=== PATIENT | male | born 1955 | race Two or more races ===

== ENCOUNTER 2023-05-05 07:09 | Outpatient (CLI) | payer OTHER | END 2023-05-05 07:19 | disposition home or self-care (01) | LOC: TOM 07:09 | PROVIDERS: ATTEND General Practice | DX: Z86.010 Personal history of colon polyps (principal) ==

== ENCOUNTER 2023-05-29 07:04 | Outpatient (CLI) | payer OTHER | END 2023-05-29 07:11 | disposition home or self-care (01) | LOC: RAD 07:04 | PROVIDERS: ATTEND General Practice | DX: M15.9 Polyosteoarthritis, unspecified (principal) ==

== ENCOUNTER 2023-06-13 07:10 | Outpatient (CLI) | payer OTHER | END 2023-06-13 07:11 | disposition home or self-care (01) | LOC: NUCLEAR 07:10 | PROVIDERS: ATTEND General Practice | DX: K80.00 Calculus of gallbladder with acute cholecystitis without obstruction (principal) | CPT/HCPCS: 78227; A9537; J2805 ==